=== PATIENT | female | born 1990 | race Caucasian/White ===

== ENCOUNTER 2024-01-05 01:14 | Inpatient (IN) ==
[2024-01-05] MEDS ORDERED: LIDOCAINE 1% LOCAL 20 ML VIAL INFIL PRN (01:35)
[2024-01-05] MEDS ORDERED: OXYTOCIN 30 UNITS/NSS 30 UNITS/500 ML BAG IV PRN ×2 (01:35→21:22)
--- NOTE | 2024-01-05 01:39 | History & Physical Report ---
Date of Service January 05, 2024 Assessment & Plan (1) Supervision of normal intrauterine in primigravida: Plan: She has made cervical change since yesterday, desiring epidural. Admit to L&D. EFM/labs. OK for epidural when she desires. History of Present Illness Chief Complaint: contractions, leaking fluid Primary Care Provider: NO PCP 33yo @ 40 3/, came to L&D with leaking fluid and contractions. Was at L&D last night with cervical exam 0.5cm. Since then, contractions have significantly worsened. Allergies Allergy/AdvReac Type Severity Reaction Status Date / Time No Known Allergies Allergy Mild Verified 01/01/24 14:37 Home Medications Medication Instructions Recorded Confirmed Type vit 168-iron 27 mg-folic 1 cap PO DAILY 05/19/23 01/04/24 History acid 800 mcg-omega3 235 mg capsule (One-A-Day -1) ferrous sulfate 325 mg (65 mg 325 mg PO Q OTHER DAY 11/06/23 01/04/24 History iron) tablet (FeroSul) Patient History Surgical History (Updated 05/19/23 @ 09:54 by Odalis Feliciano) S/P wisdom tooth extraction Family History (Updated 05/19/23 @ 09:48 by Odalis Feliciano) Other Diabetes Parkinson disease Social History (Updated 05/19/23 @ 09:49 by Odalis Feliciano) Smoking Status: Never smoker Second Hand Exposure: No; Do You Dip or Chew Tobacco: No; Hx Alcohol Use: No Hx Substance Use: No Preferred Language: Faroese marital status: marital status details: Tariq (27) [phone] Current Living Situation: Spouse Current Living Situation Comment: lives with spouse, 2 dogs. 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 No s/s chorio or abruption. Skin: no rashes, warm and dry Psychiatric: A+Ox3, euthymic affect Results & Data Vital Signs (Past 12 Hours) Vital Signs Pulse BP 01/05/24 01:34 72 134/86 Coding Level of Care Code None Diagnoses Supervision of normal intrauterine in primigravida Z34.00
[2024-01-05] MEDS: LACTATED RINGER'S 1,000 ML IV PRN (01:45)
[2024-01-05 02:04] LABS: Hematocrit (blood only) 36.4 % (37.0-47.0); Hemoglobin 12.3 g/dl (12.0-16.0); Mean Corpuscular Hgb Conc 33.8 g/dL (32.0-36.0); Mean Corpuscular Volume 91.7 fL (80.0-100.0); Platelet Count 261 K/uL (130-400); RDW Coefficient of Variation 12.2 % (11.5-14.5); RDW Standard Deviation 40.8 fL (36.4-46.3); Red Blood Count 3.97 M/uL (4.20-5.40); White Blood Count 8.13 K/ul (4.8-10.8)
--- NOTE | 2024-01-05 02:58 | Anesthesiology Consultation ---
Date of Service January 05, 2024 Assessment & Plan (1) Encounter for pre-operative examination: Chart Review Chart Review: Acceptable Risk for Labor Epidural History Height/Weight Height: 5 ft 8 in Weight: 108.862 kg Allergies Allergy/AdvReac Type Severity Reaction Status Date / Time No Known Allergies Allergy Mild Verified 01/01/24 14:37 Medications Home Medications Medication Instructions Recorded Confirmed Last Taken vit 168-iron 27 mg-folic 1 cap PO DAILY 05/19/23 01/05/24 01/04/24 08:00 acid 800 mcg-omega3 235 mg capsule (One-A-Day -1) Active Medications Generic Name Dose Route Start Last Admin Trade Name Freq PRN Reason Stop Dose Admin Lactated Ringer's 1,000 mls @ 125 mls/hr 01/05/24 01:35 01/05/24 01:45 Lr IV 01/07/24 01:34 125 mls/hr .Q8H PRN Administration L&D Protocol Protocol Past Medical History Medical History (Updated 01/05/24 @ 02:57 by Tye Medina MD) Post-dates Past Family History Family History (Updated 05/19/23 @ 09:48 by Odalis Feliciano) Other Diabetes Parkinson disease Past Surgical History Surgical History S/P wisdom tooth extraction Social History Smoking Status: Never smoker Do You Dip or Chew Tobacco: No Hx Alcohol Use: No Hx Substance Use: No substance use type: does not use Physical Exam Vital Signs Last Vital Signs Temp 36.7 C 01/05/24 01:58 Pulse 72 01/05/24 01:34 Resp 18 01/05/24 01:58 BP 134/86 01/05/24 01:34 Testing Laboratory Results 01/05/24 01:44
[2024-01-05] MEDS ORDERED: NALOXONE HCL 1 MG in SODIUM CHLORIDE 0.9% 1,000 ML IV PRN (03:23)
[2024-01-05] MEDS ORDERED: NALOXONE HCL 0.4 MG/1 ML VIAL/CARP IV PRN (03:23)
[2024-01-05] MEDS ORDERED: BUPIVACAINE 0.25% PF 30 ML VIAL EPI PRN (03:23)
[2024-01-05] MEDS ORDERED: ePHEDrine sulfate 50 MG/ML AMP IV PRN (03:23)
[2024-01-05] MEDS ORDERED: SODIUM CHLORIDE 0.9% PF INJ 10 ML VIAL EPI PRN (03:23)
[2024-01-05] MEDS ORDERED: ROPIVACAINE 0.5% PF 5 MG/ML 20 ML VIAL EPI PRN (03:23)
[2024-01-05] MEDS ORDERED: LIDOCAINE 2% MPF LOCAL 5 ML VIAL EPI PRN (03:23)
[2024-01-05] MEDS ORDERED: fentaNYL citrate PF 100 MCG/2 ML VIAL EPI PRN (03:23)
[2024-01-05] MEDS ORDERED: ONDANSETRON INJ 2 MG/ML 2 ML VIAL IV PRN (03:23)
[2024-01-05] MEDS: fentANYL 2 MCG/ML BUPIVacaine 0.125%-NSS 100ML BAG ONE (03:25)
[2024-01-05] MEDS: fentaNYL citrate PF 100 MCG/2 ML VIAL ONE (03:27)
[2024-01-05] MEDS: BUPIVACAINE 0.25% PF 30 ML VIAL ONE (03:28)
[2024-01-05] MEDS: LIDOCAINE 2%/EPINEPHRINE 1:200,000 20 ML PF ONE (03:29)
[2024-01-05] MEDS: ePHEDrine sulfate 50 MG/ML AMP ONE (03:30)
[2024-01-05] MEDS: SODIUM CHLORIDE 0.9% PF INJ 10 ML VIAL ONE (03:31)
[2024-01-05] MEDS: fentaNYL citrate PF 100 MCG/2 ML VIAL EPI STA (03:53)
[2024-01-05] MEDS: LIDOCAINE 2%/EPINEPHRINE 1:200,000 20 ML PF EPI STA (03:53)
[2024-01-05] MEDS: BUPIVACAINE 0.25% PF 30 ML VIAL EPI STA (03:53)
--- NOTE | 2024-01-05 08:34 | Labor Progress Brief Note ---
Date of Service January 05, 2024 Subjective Comfortable with epidural. FHT Cat 1 [place] Q 2-3 SVE 5/100/-1, suspect membranes have already ruptured - no palpable membranes Limited bedside US cephalic Assessment & Plan Admission and Anticipated Discharge Date Admission Date: January 05, 2024 Results & Data Vital Signs (Past 12 Hours) Vital Signs Temp Pulse Resp BP Pulse Ox 01/05/24 08:31 88 118/59 L 01/05/24 08:28 88 98 01/05/24 08:26 90 93 01/05/24 08:23 76 100 01/05/24 08:18 82 99 01/05/24 08:17 75 124/86 01/05/24 08:13 73 99 01/05/24 08:08 75 100 01/05/24 08:03 70 97 01/05/24 08:00 71 127/74 01/05/24 07:58 69 98 01/05/24 07:53 74 98 01/05/24 07:48 74 99 01/05/24 07:45 76 143/84 H 01/05/24 07:43 74 98 01/05/24 07:38 73 99 01/05/24 07:33 70 98 01/05/24 07:30 36.4 C L 82 20 146/84 H 01/05/24 07:28 77 99 01/05/24 07:23 98 01/05/24 07:23 77 01/05/24 07:23 68 155/87 H 01/05/24 07:18 77 99 01/05/24 07:13 75 99 01/05/24 07:08 81 98 01/05/24 07:03 75 97 01/05/24 07:01 77 93 01/05/24 07:00 18 01/05/24 07:00 18 01/05/24 06:58 78 98 01/05/24 06:53 75 98 01/05/24 06:48 72 98 01/05/24 06:45 75 135/79 01/05/24 06:43 75 98 01/05/24 06:38 70 98 01/05/24 06:33 73 98 01/05/24 06:31 72 129/77 01/05/24 06:30 18 01/05/24 06:30 18 01/05/24 06:28 69 97 01/05/24 06:23 73 98 01/05/24 06:18 76 98 01/05/24 06:15 70 134/76 01/05/24 06:13 75 99 01/05/24 06:08 74 99 01/05/24 06:03 72 98 01/05/24 06:01 72 131/79 01/05/24 06:00 18 01/05/24 06:00 18 01/05/24 05:58 74 97 01/05/24 05:53 72 98 01/05/24 05:52 72 133/71 01/05/24 05:48 73 98 01/05/24 05:46 71 163/91 H 01/05/24 05:43 76 98 01/05/24 05:38 78 99 01/05/24 05:33 83 98 01/05/24 05:30 18 01/05/24 05:30 18 01/05/24 05:28 86 99 01/05/24 05:23 79 99 01/05/24 05:18 86 98 01/05/24 05:15 77 113/56 L 01/05/24 05:13 74 97 01/05/24 05:08 77 97 01/05/24 05:03 74 97 01/05/24 05:01 75 114/61 01/05/24 05:00 18 01/05/24 05:00 18 01/05/24 04:58 77 97 01/05/24 04:53 72 98 01/05/24 04:48 79 98 01/05/24 04:46 72 108/56 L 01/05/24 04:43 71 97 01/05/24 04:38 72 98 01/05/24 04:33 74 97 01/05/24 04:31 68 113/58 L 01/05/24 04:30 18 01/05/24 04:30 18 01/05/24 04:28 71 97 01/05/24 04:23 73 98 01/05/24 04:18 75 99 01/05/24 04:17 75 118/64 01/05/24 04:13 73 98 01/05/24 04:08 73 97 01/05/24 04:03 73 98 01/05/24 04:02 74 118/58 L 01/05/24 04:00 18 01/05/24 04:00 18 01/05/24 03:58 72 98 01/05/24 03:53 76 98 01/05/24 03:48 78 98 01/05/24 03:46 73 117/56 L 01/05/24 03:43 77 98 01/05/24 03:38 74 98 01/05/24 03:33 78 98 01/05/24 03:30 88 111/65 01/05/24 03:28 84 98 01/05/24 03:27 80 109/58 L 01/05/24 03:24 78 103/58 L 01/05/24 03:23 77 98 01/05/24 03:21 89 99/54 L 01/05/24 03:18 100 01/05/24 03:18 86 01/05/24 03:18 78 108/62 01/05/24 03:14 72 97/55 L 01/05/24 03:13 70 100 01/05/24 03:08 80 100 01/05/24 03:03 84 100 01/05/24 02:58 81 98 01/05/24 01:58 36.7 C 18 01/05/24 01:34 72 134/86 Coding Level of Care Code None
[2024-01-05] MEDS: OXYTOCIN 30 UNITS/NSS 30 UNITS/500 ML BAG IV PRN (10:02)
[2024-01-05] MEDS: fentANYL 2 MCG/ML BUPIVacaine 0.125%-NSS 100ML BAG EPI PRN (11:38)
[2024-01-05] MEDS ORDERED: Nursing to Pharmacy Communication SCH (13:30)
[2024-01-05] MEDS ORDERED: fentaNYL citrate PF 100 MCG/2 ML VIAL ONE (18:08)
[2024-01-05] MEDS ORDERED: LIDOCAINE 2% MPF LOCAL 5 ML VIAL ONE (18:08)
[2024-01-05] MEDS ORDERED: NURSING L&D Epidural Breakthrough Pain Update ONE (19:35)
[2024-01-05] MEDS ORDERED: HYDROCORTISONE ACETATE 25 MG SUPP PR PRN (21:22)
[2024-01-05] MEDS ORDERED: ACETAMINOPHEN 325 MG TAB PO PRN (21:22)
[2024-01-05] MEDS ORDERED: oxyCODONE/ACETAMINOPHEN 5mg/325mg TAB PO PRN (21:22)
--- NOTE | 2024-01-05 21:59 | Anesthesia Procedure Note ---
Date of Service January 05, 2024 Anesthesia Epidural Re-Dose Vital Signs Temp Pulse Resp BP Pulse Ox O2 Del Method 37.1 C 101 H 20 136/63 98 Room Air 01/05/24 19:20 01/05/24 21:45 01/05/24 20:58 01/05/24 21:45 01/05/24 21:13 01/05/24 19:20 Notes Pain Intensity: 6 Dilatation (cm): 10.0 Effacement (%): 100 Called by nursing to evaluate epidural as the patient is having increased pain. The epidural was re-dosed with the following medications (all medications via epidural route) after negative aspiration of the epidural catheter for CSF/HEME. 2% lidocaine 5ml with fentanyl 100mcg. After Epidural Re-Dose Mental Status: alert / awake / arousable Pain: improving with treatment Airway Patency, RR, SpO2: stable & adequate BP & HR: stable & adequate
--- NOTE | 2024-01-05 22:00 | Anesthesia Procedure Note ---
Date of Service January 05, 2024 Anesthesia Post Epidural Note Vital Signs Vital Signs: Temp Pulse Resp BP Pulse Ox O2 Del Method 37.1 C 101 H 20 136/63 98 Room Air 01/05/24 19:20 01/05/24 21:45 01/05/24 20:58 01/05/24 21:45 01/05/24 21:13 01/05/24 19:20 Pain Intensity Left Lower Groin: Pain Intensity: 0 Notes Mental Status: alert / awake / arousable Nausea / Vomiting: adequately controlled Pain: adequately controlled Airway Patency, RR, SpO2: stable & adequate BP & HR: stable & adequate Hydration State: stable & adequate Neuraxial Anesthesia: was administered and sensory block is resolving Anesthetic Complications: no major complications apparent and Pt Satisfied with anesthetic care Epidural: Removed without complications and With tip intact
[2024-01-05] MEDS: IBUPROFEN 600 MG TAB PO PRN (22:16)
[2024-01-05] MEDS: BENZOCAINE 20% SPRY 85 APPLN/85 GM CAN EXT PRN (22:16)
--- NOTE | 2024-01-05 22:32 | Delivery Summary ---
Vaginal Delivery Summary Date of Service January 05, 2024 Vaginal Delivery Summary and 1st Degree LAC Patient is a 33-year-old 1 P0 female EDC of 01/02/2024 who presented with ruptured membranes and spontaneous labor. She received effective epidural analgesia. Pitocin augmentation was needed to promote a better contraction pattern. She progressed to full dilation and pushed effectively over intact perineum for delivery of a viable male infant. There was a mild shoulder dystocia present but was resolved with hyperflexion of the hips. After the shoulders were delivered the rest of the infant delivered easily and was placed on the mother's abdomen for further attention and drying. After stimulation, he was vigorous and crying. The cord was clamped and cut after 1 minute. After cord blood was obtained, the placenta was expressed intact with a three-vessel cord. bleeding was controlled with dilute Pitocin and fundal massage. A first-degree midline labial laceration was repaired with 3-0 chromic in usual fashion. QBL was 500 cc. Mother and infant were doing well after delivery. [facility] [place] Vaginal Delivery Charge Delivery Type Details: and 1st Degree LAC
[2024-01-06] MEDS: DIPHTHER/TETAN/PERTUS Vaccine (Tdap, Adol/Adult) 0.5mL IM ONE (00:10)
--- NOTE | 2024-01-06 07:07 | Obstetrical Progress Note ---
Date of Service <Shayla Solares MD - Last Filed: 01/06/24 07:32> January 06, 2024 Assessment & Plan <Shayla Solares MD - Last Filed: 01/06/24 07:32> (1) Encounter for assessment: visit type: exam and care immediately after delivery Qualified Code(s): Z39.0 - Encounter for care and examination of mother immediately after delivery Plan Patient with the above mentioned history and findings was evaluated at bedside and found awake, alert, oriented in all spheres, afebrile, and in no acute distress. Vital signs showed no fever and blood pressures remained stable. Her blood type is O positive and today's hemoglobin is adequate at 9.2 g/dL. Patient without symptoms of anemia such as lightheadedness, dizziness with standing, p alpitations, or tachycardia. Serologies are negative for GBS and patient is Rubella immune. Overall, patient is doing well clinically and meeting the desired milestone for her course. Suspect her bilateral LE cramping is musculoskeletal. Will continue routine pp care. All questions were answered. <Rosangela Christiansen MD, FACOG - Last Filed: 01/06/24 07:34> (1) Encounter for assessment: Subjective <Shayla Solares MD - Last Filed: 01/06/24 07:32> Kim is a 33 y/o female who is now PPD # 1 following at 41 5/7 weeks. Reports feeling well overall this morning. Refers mild abdominal cramping & 4/10 pain well managed on analgesics. She refers having some cramping in anterior aspects of bilateral thighs that does not radiate. Voiding spontaneously. Tolerating meals overnight and able to ambulate some. Has not passed gas or had a bm yet. Some persistent lochia with some improvement this morning. Bottle feeding. Constitutional: no fever, no chills or no sweats Denies shortness of breath or difficulty breathing Cardiovascular: no chest pain or no palpitations Breast: no breast pain Genitourinary (female): no dysuria Neurologic: no headache(s) Denies changes in vision Physical Exam <Shayla Solares MD - Last Filed: 01/06/24 07:32> General: Alert. Oriented to person, time, and place. Afebrile. No acute distress. Cardiac: Regular rate and rhythm, no murmurs/rubs/gallops. Respiratory: Clear to auscultation bilaterally a/p, no wheezes/rales/rhonchi. No increased work of breathing. Symmetrical chest rise. No respiratory distress. Abdomen: Soft, nontender, nondistended. Bowel sounds present. Uterus: Uterine fundus firm, non tender, and palpable at umbilicus. Lower Extremities: No lower extremity edema or swelling. No deep calf pain. Alessandro's negative bilaterally. Psych: Euthymic affect. Mood and affect congruence. Regular speech rate and content. Results & Data <Shayla Solares MD - Last Filed: 01/06/24 07:32> Vital Signs (Past 12 Hours) Vital Signs Temp Pulse Pulse Resp BP BP Pulse Ox 01/06/24 03:05 36.6 C 81 16 131/83 98 01/05/24 23:50 36.9 C 97 H 17 129/78 97 01/05/24 23:15 18 01/05/24 23:15 100 H 108/67 01/05/24 23:00 104 H 118/72 01/05/24 22:45 18 01/05/24 22:45 105 H 116/63 01/05/24 22:30 94 H 120/60 01/05/24 22:15 20 01/05/24 22:15 103 H 129/60 01/05/24 22:00 18 01/05/24 22:00 105 H 128/56 L 01/05/24 21:45 20 01/05/24 21:45 101 H 136/63 01/05/24 21:30 18 01/05/24 21:30 101 H 132/73 01/05/24 21:15 18 01/05/24 21:15 103 H 129/71 01/05/24 21:13 106 H 98 01/05/24 21:08 104 H 98 01/05/24 21:03 114 H 98 01/05/24 20:58 132 H 20 99 01/05/24 20:53 101 H 99 01/05/24 20:52 98 H 86 L 01/05/24 20:51 100 H 136/76 01/05/24 20:48 98 H 100 01/05/24 20:43 109 H 99 01/05/24 20:38 101 H 99 01/05/24 20:37 95 H 132/72 01/05/24 20:33 112 H 99 01/05/24 20:28 94 H 100 01/05/24 20:23 93 H 100 01/05/24 20:22 100 H 152/95 H 01/05/24 20:18 98 H 100 01/05/24 20:13 101 H 98 01/05/24 20:12 93 H 91 01/05/24 20:08 91 H 100 01/05/24 20:06 95 H 137/81 01/05/24 20:03 92 H 100 01/05/24 20:00 18 01/05/24 20:00 18 01/05/24 19:58 97 H 98 01/05/24 19:53 89 100 01/05/24 19:51 88 136/75 01/05/24 19:48 90 100 01/05/24 19:43 94 H 98 01/05/24 19:38 86 99 01/05/24 19:37 85 135/78 01/05/24 19:33 85 100 01/05/24 19:28 85 100 01/05/24 19:24 92 H 92 01/05/24 19:23 90 100 01/05/24 19:22 86 132/86 01/05/24 19:20 01/05/24 19:20 18 01/05/24 19:20 37.1 C 18 01/05/24 19:18 94 H 100 01/05/24 19:13 93 H 100 01/05/24 19:08 94 H 100 01/05/24 19:06 95 H 134/84 01/05/24 19:03 97 H 97 O2 Del Method 01/06/24 03:05 Room Air 01/05/24 23:50 Room Air 01/05/24 23:15 01/05/24 23:15 01/05/24 23:00 01/05/24 22:45 01/05/24 22:45 01/05/24 22:30 01/05/24 22:15 01/05/24 22:15 01/05/24 22:00 01/05/24 22:00 01/05/24 21:45 01/05/24 21:45 01/05/24 21:30 01/05/24 21:30 01/05/24 21:15 01/05/24 21:15 01/05/24 21:13 01/05/24 21:08 01/05/24 21:03 01/05/24 20:58 01/05/24 20:53 01/05/24 20:52 01/05/24 20:51 01/05/24 20:48 01/05/24 20:43 01/05/24 20:38 01/05/24 20:37 01/05/24 20:33 01/05/24 20:28 01/05/24 20:23 01/05/24 20:22 01/05/24 20:18 01/05/24 20:13 01/05/24 20:12 01/05/24 20:08 01/05/24 20:06 01/05/24 20:03 01/05/24 20:00 01/05/24 20:00 01/05/24 19:58 01/05/24 19:53 01/05/24 19:51 01/05/24 19:48 01/05/24 19:43 01/05/24 19:38 01/05/24 19:37 01/05/24 19:33 01/05/24 19:28 01/05/24 19:24 01/05/24 19:23 01/05/24 19:22 01/05/24 19:20 Room Air 01/05/24 19:20 01/05/24 19:20 01/05/24 19:18 01/05/24 19:13 01/05/24 19:08 01/05/24 19:06 01/05/24 19:03 Supervising Physician <Rosangela Christiansen MD, FACOG - Last Filed: 01/06/24 07:34> Co-Signing Physician Notes Resident Physician Supervision Note: I interviewed and examined the patient. Discussed with Dr. Solares and agree with findings and plan as documented in the note. Any exceptions or clarifications are listed here: [None] Documented By: Rosangela Christiansen MD, FACOG
[2024-01-06 07:12] LABS: Hematocrit (blood only) 27.2 % (37.0-47.0); Hemoglobin 9.2 g/dl (12.0-16.0); Mean Corpuscular Hgb Conc 33.8 g/dL (32.0-36.0); Mean Corpuscular Volume 91.6 fL (80.0-100.0); Mean Platelet Volume 10.9 fL (9.4-12.4); Platelet Count 206 K/uL (130-400); RDW Coefficient of Variation 12.5 % (11.5-14.5); RDW Standard Deviation 41.3 fL (36.4-46.3); Red Blood Count 2.97 M/uL (4.20-5.40)
[2024-01-06] MEDS: PRENATAL VITAMIN 1 TAB PO SCH (07:37)
[2024-01-06] MEDS: DOCUSATE SODIUM 100 MG CAP PO SCH (07:37)
[2024-01-06] MEDS: bisacodyL 5 MG TABEC PO SCH (20:54)
[2024-01-06] MEDS: SODIUM CHLORIDE 0.9% PF INJ 10 ML VIAL EPI STA (21:03)
[2024-01-07 07:11] LABS: Hematocrit (blood only) 28.5 % (37.0-47.0); Hemoglobin 9.5 g/dl (12.0-16.0)
--- NOTE | 2024-01-07 07:31 | Obstetrical Progress Note ---
Date of Service <Shayla Solares MD - Last Filed: 01/07/24 07:30> January 07, 2024 Assessment & Plan <Shayla Solares MD - Last Filed: 01/07/24 07:30> (1) Encounter for assessment: visit type: exam and care immediately after delivery Qualified Code(s): Z39.0 - Encounter for care and examination of mother immediately after delivery Plan Patient with the above mentioned history and findings was evaluated at bedside and found awake, alert, oriented in all spheres, afebrile, and in no acute distress. Vital signs showed no fever and blood pressures remained stable. Her blood type is O positive and today's hemoglobin is adequate at 9.5 g/dL. Patient without symptoms of anemia such as lightheadedness, dizziness with standing, p alpitations, or tachycardia. Serologies are negative for GBS and patient is Rubella immune. Overall, patient is doing well clinically and meeting the desired milestone for her course. Therefore, will discharge patient today. Patient was counselled on discharge instructions. She is to make an appointment with her OB for 6 weeks after discharge for follow up evaluation. All questions were answered. <Franny Bond MD, FACOG - Last Filed: 01/07/24 07:58> (1) Encounter for assessment: Day #:: 2 Subjective <Shayla Solares MD - Last Filed: 01/07/24 07:30> Kim is a 33 y/o female who is now PPD # 2 following at 41 5/7 weeks. Reports feeling well overall this morning. Refers mild abdominal cramping & 2/10 pain well managed on analgesics. Cramping in anterior thighs has improved. Voiding spontaneously. Tolerating meals overnight and able to ambulate some. Has not passed gas or had a bm yet. Some persistent lochia with some improvement this morning. Bottle feeding. Constitutional: no fever, no chills or no sweats Denies shortness of breath or difficulty breathing Cardiovascular: no chest pain or no palpitations Breast: no breast pain Genitourinary (female): no dysuria Neurologic: no headache(s) Denies changes in vision Physical Exam <Shayla Solares MD - Last Filed: 01/07/24 07:30> General: Alert. Oriented to person, time, and place. Afebrile. No acute distress. Cardiac: Regular rate and rhythm, no murmurs/rubs/gallops. Respiratory: Clear to auscultation bilaterally a/p, no wheezes/rales/rhonchi. No increased work of breathing. Symmetrical chest rise. No respiratory distress. Abdomen: Soft, nontender, nondistended. Bowel sounds present. Uterus: Uterine fundus firm, non tender, and palpable below umbilicus. Lower Extremities:Mild lower extremity edema or swelling. No deep calf pain. Alessandro's negative bilaterally. Psych: Euthymic affect. Mood and affect congruence. Regular speech rate and content. Results & Data <Shayla Solares MD - Last Filed: 01/07/24 07:30> Vital Signs (Past 12 Hours) Vital Signs Temp Pulse Pulse Resp BP Pulse Ox O2 Del Method 01/06/24 23:40 36.5 C 83 16 122/73 01/06/24 19:45 36.7 C 85 18 124/73 98 Room Air Supervising Physician <Franny Bond MD, FACOG - Last Filed: 01/07/24 07:58> Co-Signing Physician Notes Resident Physician Supervision Note: I was present with Dr. Solares during the history and exam. I discussed the case with the resident and agree with the findings and plan as documented in the note. Any exceptions or clarifications are listed here: stable doing well, ready for dc home, f/u 6 wks pp check. instructions reviewed. bottle, rhpos, ri. abd soft ff 2 down nt, next nt calves. Documented By: Franny Bond MD, FACOG
[2024-01-07] MEDS ORDERED: bisacodyL 10 MG SUPP PR PRN (21:22)
== END 2024-01-07 12:25 | disposition home or self-care (01) | DRG 807 ==
LOC: OPB 01:14 → 4S1 01:20 → 4E2 23:59
DX: O48.0 Post-term pregnancy; O42.02 Full-term premature rupture of membranes, onset of labor within 24 hours of rupture; Z3A.40 40 weeks gestation of pregnancy; O70.0 First degree perineal laceration during delivery; Z37.0 Single live birth

== ENCOUNTER 2025-08-21 07:35 | Inpatient (IN) ==
[2025-08-21] MEDS ORDERED: LIDOCAINE 1% LOCAL 20 ML VIAL INFIL PRN (07:54)
--- NOTE | 2025-08-21 07:56 | History & Physical Report ---
Date of Service August 21, 2025 Assessment & Plan (1) 40 weeks gestation of : Plan Pitocin Arom when indicated Monitor tracing, category 1 Admission and Anticipated Discharge Date Admission Date: August 21, 2025 History of Present Illness Chief Complaint: IOL Primary Care Provider: SHIREEN PCP 35 yo at 40w2d admitted for IOL for postdates. Denies HOU, CP, SOB, N/V/D, LE pain. GBS neg, RH+ Contractions: rare and intermittent Fluid loss: none FM: present Bloody show: none Allergies Allergy/AdvReac Type Severity Reaction Status Date / Time No Known Allergies Allergy Mild Verified 08/18/25 13:21 Home Medications Medication Instructions Recorded Confirmed Type PNV [id number] PO 01/06/25 08/18/25 History [ Gummies] ferrous sulfate 325 mg (65 mg 325 mg PO DAILY 06/13/25 08/18/25 History iron) tablet (FeroSul) Patient History Medical History Varicella vaccination Surgical History S/P wisdom tooth extraction Family History Other Diabetes Parkinson disease Denies family history of Ovarian cancer Breast cancer Colorectal cancer Social History Smoking Status: Never smoker Second Hand Exposure: No; Do You Dip or Chew Tobacco: No; Hx Alcohol Use: No Hx Substance Use: No Preferred Language: Lebanese Communication Ability: Effective Competitive Intelligence Analyst Required: No Beliefs That Will Affect Care: None marital status: marital status details: Tariq Banegas (29) [phone] Current Living Situation: Spouse Current Living Situation Comment: and son (19mo) current occupational status: employed 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[employer] Other Information That Helps Us Care for You: No Feels Safe at Home: Yes Safety Concerns: Feels Safe At This Time Assistive Devices: None OB History : 2 Full term: 1 Premature: 0 Total Number of Induced Abortions: 0 Total Number of Spontaneous Abortions: 0 Ectopics: 0 Multiple births: 0 Number of Living Children: 1 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 History Last menstrual period: Yes Menstrual reliability: definite Flow: normal Menstrual regularity: regular Monthly: Yes Age at menarche: 15 On control pills at conception: No Date of positive home test: 12/10/24 Menstrual history comments: cycles 28-30 days Review of Systems All systems reviewed & are unremarkable except as noted in HPI & below Physical Exam Constitutional: WD/WN, vitals as above Respiratory: normal respiratory effort, lungs clear to auscultation Cardiovascular: RRR, no murmur, no edema Gastrointestinal (Abdomen): normal bowel sounds, soft, nontender, no h epatosplenomegaly +gravid Skin: no rashes, warm and dry Psychiatric: A+Ox3, euthymic affect Results & Data Vital Signs (Past 12 Hours) Vital Signs Pulse BP 08/21/25 07:48 85 134/78 Laboratory Results OB Labs: Blood Type O Positive 01/13/25 Antibody Screen NEGATIVE 01/13/25 Hgb 10.5 g/dl (12.0-16.0) L 05/30/25 Hct 32.0 % (37.0-47.0) L 05/30/25 MCV 93.7 fL (80.0-100.0) 04/07/25 Plt Count 348 K/uL (130-400) 04/07/25 Rubella IgG Antibody Immune (Immune) 01/13/25 RPR Nonreactive (Nonreactive) 05/27/23 Treponema pallidum Ab Negative (Negative) 05/30/25 Hep Bs Antigen Negative (Negative) 01/13/25 Hep Bs Antigen NON-REACTIVE (NON-REACTIVE) 05/27/23 Hepatitis C Antibody Negative (Negative) 01/13/25 Hepatitis C Ab (EIA) NON-REACTIVE (NON-REACTIVE) 05/27/23 HIV 1&2 Ab/P24 Ag 4thGn Negative (Negative) 01/13/25 HIV (1&2) Ag & Ab Conf NON-REACTIVE (NON-REACTIVE) 05/27/23 Glucose 1 Hr 50 gm 123 mg/dl (70-130) 05/30/25 OB Optional Labs: Chlamydia trachomatis RNA Not Detected (NotDetected) 01/13/25 Neisseria gonorrhoeae RNA Not Detected (NotDetected) 01/13/25 Monitoring External Monitor HR: 140 Variability: moderate Accelerations: present Decelerations: absent Contractions: absent Category 1 tracing Supervising Physician Co-Signing Physician Notes Patient seen and evaluated agree with the above findings and plan. Will start with oxytocin per regular protocol. Category 1 tracing noted Resident Activity Tracking Resident Involvement: Resident Care Provided Care Provided: OB Delivery
[2025-08-21 09:13] LABS: Hematocrit (blood only) 31.4 % (37.0-47.0); Hemoglobin 11.0 g/dl (12.0-16.0); Mean Corpuscular Hemoglobin 31.9 pg (25.0-34.0); Mean Corpuscular Volume 91.0 fL (80.0-100.0); Platelet Count 251 K/uL (130-400); RDW Standard Deviation 41.0 fL (36.4-46.3); Red Blood Count 3.45 M/uL (4.20-5.40); White Blood Count 5.99 K/ul (4.8-10.8)
[2025-08-21] MEDS: LACTATED RINGER'S 1,000 ML IV PRN (09:13)
[2025-08-21] MEDS: OXYTOCIN 30 UNITS/NSS 30 UNITS/500 ML BAG IV PRN (09:14)
--- NOTE | 2025-08-21 15:12 | Anesthesiology Consultation ---
Date of Service August 21, 2025 Assessment & Plan (1) Encounter for pre-operative examination: Chart Review Chart Review: Acceptable Risk for Labor Epidural History Height/Weight Height: 5 ft 8 in Weight: 108.862 kg Allergies Allergy/AdvReac Type Severity Reaction Status Date / Time No Known Allergies Allergy Mild Verified 08/21/25 10:45 Medications Home Medications Medication Instructions Recorded Confirmed Last Taken vits no.124-ferrous fum 1 tab PO DAILY 08/21/25 08/21/25 08/20/25 08:00 27 mg iron-folic acid 800 mcg tablet ( Vitamin) Active Medications Generic Name Dose Route Start Last Admin Trade Name Freq PRN Reason Stop Dose Admin Lactated Ringer's 1,000 mls @ 125 mls/hr 08/21/25 07:54 08/21/25 14:39 Lr IV 08/23/25 07:53 999 mls/hr .Q8H PRN Administration L&D Protocol Protocol Oxytocin 30 units in 500 mls @ 10 mls/hr 08/21/25 08:45 08/21/25 12:50 Pitocin 30 Units/Nss IV 08/23/25 08:44 0.6 units/hr .Q24H PRN 10 mls/hr Labor Induction/Augmentation Titration Protocol 0.6 UNITS/HR Past Medical History Medical History Varicella vaccination Past Family History Family History Other Diabetes Parkinson disease Denies family history of Ovarian cancer Breast cancer Colorectal cancer Past Surgical History Surgical History S/P wisdom tooth extraction Social History Smoking Status: Never smoker Do You Dip or Chew Tobacco: No Hx Alcohol Use: No Hx Substance Use: No substance use type: does not use Physical Exam Vital Signs Last Vital Signs Temp 36.6 C 08/21/25 11:00 Pulse 79 08/21/25 15:09 Resp 20 08/21/25 11:00 BP 131/70 08/21/25 14:20 Pulse Ox 99 08/21/25 15:09 Testing Laboratory Results 08/21/25 08:39 Blood Type O Positive 08/21/25 08:39 Antibody Screen NEGATIVE 08/21/25 08:39
[2025-08-21] MEDS: LIDOCAINE 2%/EPINEPHRINE 1:200,000 20 ML PF ONE (15:43)
[2025-08-21] MEDS: BUPIVACAINE 0.25% PF 30 ML VIAL ONE (15:43)
[2025-08-21] MEDS: fentANYL 2 MCG/ML BUPIVacaine 0.125%-NSS 100ML BAG ONE (15:45)
[2025-08-21] MEDS ORDERED: NALOXONE HCL 0.4 MG/1 ML VIAL/CARP IV PRN (15:47)
[2025-08-21] MEDS ORDERED: SODIUM CHLORIDE 0.9% PF INJ 10 ML VIAL EPI PRN (15:47)
[2025-08-21] MEDS ORDERED: LIDOCAINE 2% MPF LOCAL 5 ML VIAL EPI PRN (15:47)
[2025-08-21] MEDS ORDERED: BUPIVACAINE 0.25% PF 30 ML VIAL EPI PRN (15:47)
[2025-08-21] MEDS ORDERED: ONDANSETRON INJ 2 MG/ML 2 ML VIAL IV PRN (15:47)
[2025-08-21] MEDS ORDERED: NALOXONE HCL 1 MG in SODIUM CHLORIDE 0.9% 1,000 ML IV PRN (15:47)
[2025-08-21] MEDS ORDERED: ROPIVACAINE 0.5% PF 5 MG/ML 20 ML VIAL EPI PRN (15:47)
[2025-08-21] MEDS: SODIUM CHLORIDE 0.9% PF INJ 10 ML VIAL ONE (17:34)
[2025-08-21] MEDS: BUPIVACAINE 0.25% PF 30 ML VIAL EPI STA (17:35)
[2025-08-21] MEDS: LIDOCAINE 2%/EPINEPHRINE 1:200,000 20 ML PF EPI STA (17:35)
[2025-08-21] MEDS: SODIUM CHLORIDE 0.9% PF INJ 10 ML VIAL EPI STA (17:36)
--- NOTE | 2025-08-21 21:34 | Labor Progress Brief Note ---
Date of Service August 21, 2025 Subjective Reason For Note: Routine Evaluation Assessment & Plan (1) 40 weeks gestation of : Plan: Modest cervical change noted. Patient underwent artificial rupture membranes around 4 PM for clear fluid. IUPC placed due to minimal cervical change. Will continue to titrate oxytocin. Category 1 tracing. (2) Encounter for induction of labor: Admission and Anticipated Discharge Date Admission Date: August 21, 2025 Physical Exam Genitourinary: Manual OB Exam: + cervical dilation (4-5), + cervical effacement 70%, + station high and -2 and + amniotic fluid clear OB Exam Amanda tor Tracing: + external FHT monitor used, + external uterine monitor used, + category I and + normal FHT variability IUPC placed Results & Data Vital Signs (Past 12 Hours) Vital Signs Temp Pulse Resp BP Pulse Ox 08/21/25 21:29 99 08/21/25 21:29 86 08/21/25 21:26 79 08/21/25 21:26 109/58 L 08/21/25 21:24 98 08/21/25 21:24 83 08/21/25 21:19 98 08/21/25 21:19 76 08/21/25 21:15 18 08/21/25 21:15 36.7 C 18 08/21/25 21:14 98 08/21/25 21:14 81 08/21/25 21:10 83 08/21/25 21:10 92/54 L 08/21/25 21:09 98 08/21/25 21:09 80 08/21/25 21:04 97 08/21/25 21:04 83 08/21/25 20:59 98 08/21/25 20:59 76 08/21/25 20:55 80 08/21/25 20:55 107/61 08/21/25 20:54 98 08/21/25 20:54 84 08/21/25 20:49 98 08/21/25 20:49 95 H 08/21/25 20:44 98 08/21/25 20:44 84 08/21/25 20:41 91 H 08/21/25 20:41 112/68 08/21/25 20:39 98 08/21/25 20:39 81 08/21/25 20:34 98 08/21/25 20:34 89 08/21/25 20:29 98 08/21/25 20:29 80 08/21/25 20:25 98 H 08/21/25 20:25 121/75 08/21/25 20:24 98 08/21/25 20:24 86 08/21/25 20:19 98 08/21/25 20:19 81 08/21/25 20:14 98 08/21/25 20:14 83 08/21/25 20:11 78 08/21/25 20:11 121/71 08/21/25 20:09 99 08/21/25 20:09 79 08/21/25 20:04 99 08/21/25 20:04 83 08/21/25 19:59 99 08/21/25 19:59 76 08/21/25 19:55 81 08/21/25 19:55 102/59 L 08/21/25 19:54 99 08/21/25 19:54 80 08/21/25 19:49 98 08/21/25 19:49 77 08/21/25 19:44 98 08/21/25 19:44 78 08/21/25 19:41 75 08/21/25 19:41 102/62 08/21/25 19:39 99 08/21/25 19:39 82 08/21/25 19:34 98 08/21/25 19:34 79 08/21/25 19:29 98 08/21/25 19:29 80 08/21/25 19:26 77 08/21/25 19:26 99/57 L 08/21/25 19:24 99 08/21/25 19:24 75 08/21/25 19:19 99 08/21/25 19:19 78 08/21/25 19:17 36.7 C 18 08/21/25 19:17 18 08/21/25 19:17 36.7 C 18 08/21/25 19:14 99 08/21/25 19:14 79 08/21/25 19:10 82 08/21/25 19:10 114/61 08/21/25 19:09 98 08/21/25 19:09 81 08/21/25 19:04 99 08/21/25 19:04 87 08/21/25 18:59 98 08/21/25 18:59 82 08/21/25 18:55 76 08/21/25 18:55 97/54 L 08/21/25 18:54 98 08/21/25 18:54 84 08/21/25 18:49 98 08/21/25 18:49 79 08/21/25 18:46 20 08/21/25 18:46 20 08/21/25 18:44 98 08/21/25 18:44 80 08/21/25 18:40 76 08/21/25 18:40 97/59 L 08/21/25 18:39 98 08/21/25 18:39 81 08/21/25 18:34 98 08/21/25 18:34 87 08/21/25 18:29 98 08/21/25 18:29 78 08/21/25 18:25 78 08/21/25 18:25 105/58 L 08/21/25 18:24 98 08/21/25 18:24 83 08/21/25 18:19 97 08/21/25 18:19 85 08/21/25 18:14 97 08/21/25 18:14 81 08/21/25 18:10 36.8 C 20 08/21/25 18:10 81 08/21/25 18:10 108/64 08/21/25 18:09 98 08/21/25 18:09 82 08/21/25 18:04 98 08/21/25 18:04 79 08/21/25 18:01 20 08/21/25 18:01 20 08/21/25 17:59 98 08/21/25 17:59 81 08/21/25 17:56 78 08/21/25 17:56 96/52 L 08/21/25 17:54 98 08/21/25 17:54 80 08/21/25 17:49 98 08/21/25 17:49 79 08/21/25 17:44 98 08/21/25 17:44 82 08/21/25 17:40 84 08/21/25 17:40 102/57 L 08/21/25 17:39 99 08/21/25 17:39 84 08/21/25 17:34 98 08/21/25 17:34 91 H 08/21/25 17:29 98 08/21/25 17:29 91 H 08/21/25 17:25 77 08/21/25 17:25 104/55 L 08/21/25 17:24 98 08/21/25 17:24 84 08/21/25 17:19 97 08/21/25 17:19 85 08/21/25 17:16 20 08/21/25 17:16 20 08/21/25 17:14 98 08/21/25 17:14 94 H 08/21/25 17:11 88 08/21/25 17:11 107/63 08/21/25 17:09 98 08/21/25 17:09 83 08/21/25 17:04 98 08/21/25 17:04 74 08/21/25 17:01 20 08/21/25 17:01 20 08/21/25 16:59 98 08/21/25 16:59 85 08/21/25 16:56 88 08/21/25 16:56 108/64 08/21/25 16:54 97 08/21/25 16:54 81 08/21/25 16:49 98 08/21/25 16:49 85 08/21/25 16:45 20 08/21/25 16:45 20 08/21/25 16:44 98 08/21/25 16:44 81 08/21/25 16:40 82 08/21/25 16:40 96/60 L 08/21/25 16:39 97 08/21/25 16:39 83 08/21/25 16:35 20 08/21/25 16:35 20 08/21/25 16:34 98 08/21/25 16:34 76 08/21/25 16:29 97 08/21/25 16:29 76 08/21/25 16:25 74 08/21/25 16:25 98/61 L 08/21/25 16:24 96 08/21/25 16:24 76 08/21/25 16:20 20 08/21/25 16:20 20 08/21/25 16:19 99 08/21/25 16:19 88 08/21/25 16:14 97 08/21/25 16:14 80 08/21/25 16:09 98 08/21/25 16:09 84 08/21/25 16:09 99/59 L 08/21/25 16:05 20 08/21/25 16:05 36.7 C 20 08/21/25 16:04 98 08/21/25 16:04 84 08/21/25 16:03 94 H 08/21/25 16:03 126/58 L 08/21/25 15:59 98 08/21/25 15:59 86 08/21/25 15:58 95 H 08/21/25 15:58 109/62 08/21/25 15:54 98 08/21/25 15:54 93 H 08/21/25 15:52 77 08/21/25 15:52 104/56 L 08/21/25 15:50 20 08/21/25 15:50 20 08/21/25 15:49 98 08/21/25 15:49 88 08/21/25 15:49 85 08/21/25 15:49 109/57 L 08/21/25 15:48 89 08/21/25 15:48 88/53 L 08/21/25 15:46 82 08/21/25 15:46 107/63 08/21/25 15:44 99 08/21/25 15:44 104 H 08/21/25 15:44 97 H 08/21/25 15:44 109/58 L 08/21/25 15:42 82 08/21/25 15:42 129/61 08/21/25 15:39 98 08/21/25 15:39 87 08/21/25 15:34 99 08/21/25 15:34 87 08/21/25 15:29 100 08/21/25 15:29 87 08/21/25 15:24 100 08/21/25 15:24 88 08/21/25 15:19 99 08/21/25 15:19 83 08/21/25 15:14 99 08/21/25 15:14 79 08/21/25 15:09 99 08/21/25 15:09 79 08/21/25 14:20 84 08/21/25 14:20 131/70 08/21/25 13:09 82 08/21/25 13:09 128/72 08/21/25 12:20 78 08/21/25 12:20 133/71 08/21/25 11:03 77 08/21/25 11:03 131/69 08/21/25 11:00 36.6 C 20 08/21/25 10:18 82 08/21/25 10:18 119/66 Coding Level of Care Code None Diagnoses 40 weeks gestation of Z3A.40 Encounter for induction of labor Z34.90
[2025-08-21] MEDS: fentANYL 2 MCG/ML BUPIVacaine 0.125%-NSS 100ML BAG EPI PRN (23:39)
[2025-08-22] MEDS ORDERED: HYDROCORTISONE ACETATE 25 MG SUPP PR PRN (05:53)
[2025-08-22] MEDS ORDERED: OXYTOCIN 30 UNITS/NSS 30 UNITS/500 ML BAG IV PRN (05:53)
[2025-08-22] MEDS ORDERED: ACETAMINOPHEN 325 MG TAB PO PRN (05:53)
--- NOTE | 2025-08-22 05:56 | Delivery Summary ---
Vaginal Delivery Summary Date of Service August 22, 2025 Vaginal Delivery Summary and 1st Degree LAC Patient progressed to 10 cm dilated, 100% effaced and a +2 station pushed over an intact perineum with epidural anesthesia and delivered a viable female with weight and Apgars pending. Head of the delivered without difficulty and was quickly followed by shoulders and body. was noted be vigorous upon delivery and a 1 minute delayed cord clamping was initiated. Cord was then doubly clamped and cut and remained on maternal abdomen. Cord blood obtained and attention turned to delivery of the placenta which delivered intact with three-vessel cord with gentle cord traction. Inspection of perineum vagina and cervix there is noted to be a right sided periurethral laceration which was pared with 4-0 Vicryl with interrupted stitch. Needle sponge and instrument counts are correct at the completion of the case. Both mother and stable immediate postdelivery timeframe. No complications noted and blood loss per QBL in chart [id number] Vaginal Delivery Charge Delivery Type Details: and 1st Degree LAC
[2025-08-22] MEDS: OXYTOCIN 30 UNITS/NSS 30 UNITS/500 ML BAG IV PRN (06:00)
--- NOTE | 2025-08-22 06:02 | Anesthesia Procedure Note ---
Date of Service August 22, 2025 Anesthesia Post Epidural Note Vital Signs Vital Signs: Temp Pulse Resp BP Pulse Ox 37.3 C 100 H 20 134/60 97 08/22/25 03:42 08/22/25 05:59 08/22/25 03:42 08/22/25 05:55 08/22/25 05:59 Pain Intensity Abdomen: Pain Intensity: 2 Notes Mental Status: alert / awake / arousable and participated in evaluation Nausea / Vomiting: adequately controlled Pain: adequately controlled Airway Patency, RR, SpO2: stable & adequate BP & HR: stable & adequate Hydration State: stable & adequate Neuraxial Anesthesia: was administered and sensory block is resolving Anesthetic Complications: no major complications apparent Epidural: Removed without complications and With tip intact
[2025-08-22] MEDS: BENZOCAINE 20% SPRY 85 APPLN/85 GM CAN EXT PRN (08:02)
[2025-08-22] MEDS: FERROUS SULFATE 325 MG TAB PO SCH (08:02)
[2025-08-22] MEDS: IBUPROFEN 600 MG TAB PO PRN (08:02)
[2025-08-22] MEDS: DOCUSATE SODIUM 100 MG CAP PO SCH (08:02)
[2025-08-22] MEDS: PRENATAL VITAMIN 1 TAB PO SCH (08:09)
[2025-08-22] MEDS ORDERED: SODIUM CHLORIDE 0.9% 100 ML IV PRN (08:32)
[2025-08-22] MEDS: ACETAMINOPHEN 325 MG TAB PO PRN (10:27)
[2025-08-22] MEDS: DIPHTHER/TETAN/PERTUS Vaccine (Tdap, Adol/Adult) 0.5mL IM ONE (16:08)
[2025-08-22 23:43] VITALS: RESP 18
[2025-08-23 03:41] VITALS: O2SAT 98
--- NOTE | 2025-08-23 06:03 | Obstetrical Progress Note ---
Date of Service August 23, 2025 Assessment & Plan (1) care following vaginal delivery: Plan 35 yo post- day 1 s/p . Feels well today. Vital signs stable Continue post- care Encourage ambulation and Pain controlled with ibuprofen Hgb stable Discharge home today, follow up with Dr. Alvarez in 6 weeks. Admission and Anticipated Discharge Date Admission Date: August 21, 2025 Supervising Physician Co-Signing Physician Notes Resident Physician Supervision Note: I interviewed and examined the patient. Discussed with Dr. Jaeger and agree with findings and plan as documented in the note. Any exceptions or clarifications are listed here: Doing well. Patient has complaints of thigh pain, bilateral, generalized overnight. REassured this am that is likely from labor and pushing. Should slowly improve. She is ready for d/c and desires. Instructions reviewed. Documented By: Mary Ann Mcghee MD, FACOG Subjective 35 yo post- day 1 s/p . Ambulation: ambulating normally Voiding: no voiding problems Passing Gas:: Yes Passing Stool:: yes Diet Tolerance:: regular diet Lochia:: Small Feeding Type:: breast and bottle feeding Current Pain Level: 1/10 Resting comfortably this AM in NAD. Denies HOU, CP, SOB, N/V/D, LE pain/swelling. Review of Systems Review of Systems: All systems reviewed & are unremarkable except as noted in HPI & below Physical Exam Physical Exam: General: patient resting comfortably, NAD, non-toxic in appearance, AA&O x 4, answers questions appropriately. Skin: warm, dry, intact HEENT: NC/AT, anicteric sclera, conjunctiva without injection, moist mucus membranes. Heart: +S1/S2, regular, no m/r/g Lungs: equal air entry bilaterally, no rales/rhonchi/wheezes Abd: +BS, soft, NT/ND, uterine fundus firm 3 FBs below umbilicus Ext: warm, no clubbing/cyanosis or edema, Alessandro's neg. Neuro: nonfocal, patient AA&O x 4, speech intact, no facial droop, moving all extremities on command. Results & Data Vital Signs (Past 12 Hours) Vital Signs Temp Pulse Resp BP Pulse Ox O2 Del Method 08/23/25 03:30 36.6 C 65 18 97/66 L 98 Room Air 08/22/25 23:30 36.7 C 78 18 105/69 97 Room Air 08/22/25 19:27 36.7 C 81 19 123/77 96 Room Air Laboratory Results OB Labs: Blood Type O Positive 01/13/25 Antibody Screen NEGATIVE 01/13/25 Hgb 10.5 g/dl (12.0-16.0) L 05/30/25 Hct 32.0 % (37.0-47.0) L 05/30/25 MCV 93.7 fL (80.0-100.0) 04/07/25 Plt Count 348 K/uL (130-400) 04/07/25 Rubella IgG Antibody Immune (Immune) 01/13/25 RPR Nonreactive (Nonreactive) 05/27/23 Treponema pallidum Ab Negative (Negative) 05/30/25 Hep Bs Antigen Negative (Negative) 01/13/25 Hep Bs Antigen NON-REACTIVE (NON-REACTIVE) 05/27/23 Hepatitis C Antibody Negative (Negative) 01/13/25 Hepatitis C Ab (EIA) NON-REACTIVE (NON-REACTIVE) 05/27/23 HIV 1&2 Ab/P24 Ag 4thGn Negative (Negative) 01/13/25 HIV (1&2) Ag & Ab Conf NON-REACTIVE (NON-REACTIVE) 05/27/23 Glucose 1 Hr 50 gm 123 mg/dl (70-130) 05/30/25 OB Optional Labs: Chlamydia trachomatis RNA Not Detected (NotDetected) 01/13/25 Neisseria gonorrhoeae RNA Not Detected (NotDetected) 01/13/25 Resident Activity Tracking Resident Involvement: Resident Care Provided Care Provided: OB Delivery
[2025-08-23] MEDS ORDERED: LEVOTHYROXINE SODIUM 150 MCG TABLET PO SCH (06:30)
[2025-08-23 06:34] LABS: Hematocrit (blood only) 27.8 % (37.0-47.0); Hemoglobin 9.4 g/dL (12.0-16.0)
[2025-08-23 09:24] VITALS: BP 115/75; TEMP 97.5
[2025-08-23 09:29] VITALS: PULSE 65
== END 2025-08-23 11:30 | disposition home or self-care (01) | DRG 768 ==
LOC: 4S1 07:35 → 4E2 08-22 08:26